=== PATIENT | female | born 1955 | race Caucasian/White ===

== ENCOUNTER 2016-07-24 11:05 | Emergency (ER) | payer MEDICARE, BC | END 2016-07-24 15:51 | disposition home or self-care (01) | LOC: ER 11:05 | DX: J98.11 Atelectasis (principal); R06.02 Shortness of breath; R11.0 Nausea; F32.9 Major depressive disorder, single episode, unspecified; I10 Essential (primary) hypertension; Z90.49 Acquired absence of other specified parts of digestive tract; Z90.710 Acquired absence of both cervix and uterus; Z79.899 Other long term (current) drug therapy; Z88.2 Allergy status to sulfonamides; Z88.5 Allergy status to narcotic agent; Z88.8 Allergy status to other drugs, medicaments and biological substances | CPT/HCPCS: 36415; 96374; J2060; Q9967 ==